=== PATIENT | female | born 1980 | race American Indian/Alaskan Native ===

== ENCOUNTER 2019-06-29 15:52 | Emergency (ER) | payer SELFPAY ==
--- NOTE | 2019-06-29 16:00 | Event Note ---
ED Screening Note Date of service: 06/29/19 Time: 15:58 ED Screening Note: This is a 38 y.o. F. that presents to the ER with low back pain radiating to RLE for 1 week. Denies injury PMH HTN This initial assessment/diagnostic orders/clinical plan/treatment(s) is/are subject to change based on patients health status, clinical progression and re- assessment by fellow clinical providers in the ED. Further treatment and workup at subsequent clinical providers discretion. Patient/guardian urged not to elope from the ED as their condition may be serious if not clinically assessed and managed. Initial orders include: XR L-spine
--- NOTE | 2019-06-29 17:31 | XRay Report ---
LUMBAR SPINE 2 VIEWS INDICATION: Low back pain for one week. No recent known injury. COMPARISON: No relevant prior imaging study available. FINDINGS: VERTEBRAE: No acute fracture. Normal alignment. DISC SPACES: No significant abnormality. FACET JOINTS: No significant abnormality. SOFT TISSUES: No significant abnormality. ADDITIONAL FINDINGS: No additional significant findings. IMPRESSION: No acute abnormality of the lumbar spine. Signer Name: Ryan Clarke MD Signed: 06/29/2019 5:26 PM Workstation Name: [id number]
[2019-06-29] MEDS ORDERED: DECADRON IM ONE (18:42)
[2019-06-29] MEDS ORDERED: TORADOL IM ONE (18:42)
--- NOTE | 2019-06-29 18:44 | Emergency Department Report ---
ED Back Pain/Injury HPI - General Chief Complaint: Back Pain/Injury Stated Complaint: RT LEG/LOWER BACK PAIN Time Seen by Provider: 06/29/19 15:58 Source: patient Limitations: No Limitations - History of Present Illness Initial Comments: This is a 38-year-old female that presents to the ER with low back pain radiating to RLE for 1 week. PMH HTN Patient reports pain is worse with movement. Denies injury MD Complaint: back pain Onset/Timin -: week(s) Similar Symptoms Previously: No Place: home Radiation: right leg Severity: severe Severity scale (0 -10): 10 Quality: burning, aching Consistency: constant Improves With: none Worsens With: movement Context: unknown Associated Symptoms: denies: weakness, numbness, difficulty urinating, incontinence, fever/chills Treatments Prior to Arrival: NSAIDS - Related Data Previous Rx's Medication Instructions Recorded Last Taken Type Ibuprofen [Motrin 600 MG tab] 600 mg PO Q8H PRN #20 tablet 06/29/19 Unknown Rx amLODIPine [Norvasc] 5 mg PO DAILY #30 tab 06/29/19 Unknown Rx hydroCHLOROthiazide [Hctz] 12.5 mg PO QDAY #30 capsule 06/29/19 Unknown Rx methylPREDNISolone [Medrol 4MG 4 mg PO DAILY #1 tab.ds.pk 06/29/19 Unknown Rx DOSEPAK (21 tabs)] traMADol [Ultram 50 MG tab] 50 mg PO Q6HR PRN #12 tablet 06/29/19 Unknown Rx Allergies Allergy/AdvReac Type Severity Reaction Status Date / Time No Known Allergies Allergy Unverified 06/29/19 15:55 ED Review of Systems ROS: Stated complaint: RT LEG/LOWER BACK PAIN Other details as noted in HPI Constitutional: denies: chills, fever Respiratory: denies: cough, shortness of breath, wheezing Cardiovascular: denies: chest pain, palpitations Gastrointestinal: denies: abdominal pain, nausea, diarrhea Musculoskeletal: back pain. denies: joint swelling, arthralgia Skin: denies: rash, lesions Neurological: as per HPI Psychiatric: denies: anxiety, depression ED Back Pain Physical Exam - Exam General: Vital signs noted. No distress. Alert and acting appropriately. Back/Abdomen: Yes Sacroiliac Tenderness (bilateral), Yes Straight Leg Raise Pain (right leg), No Abdominal Tenderness, No Perithoracic Tenderness, No Perilumbar Tenderness, No Flank Tenderness Neuro: Yes Normal Sensation, Yes Normal DTR's, Yes Normal Gait, No Motor Weakness ED Course Vital Signs 06/29/19 15:58 Temperature 98.2 F Pulse Rate 102 H Respiratory 18 Rate Blood Pressure 143/103 [Left] O2 Sat by Pulse 99 Oximetry Vital Signs 06/29/19 06/29/19 15:58 18:49 Temperature 98.2 F Pulse Rate 102 H Respiratory 18 Rate Blood Pressure 143/103 151/98 [Left] O2 Sat by Pulse 99 Oximetry Ed Back Pain Tests - Tests Tests: Normal X Rays ED Medical Decision Making - Radiology Data Radiology results: report reviewed LUMBAR SPINE 2 VIEWS INDICATION: Low back pain for one week. No recent known injury. COMPARISON: No relevant prior imaging study available. FINDINGS: VERTEBRAE: No acute fracture. Normal alignment. DISC SPACES: No significant abnormality. FACET JOINTS: No significant abnormality. SOFT TISSUES: No significant abnormality. ADDITIONAL FINDINGS: No additional significant findings. IMPRESSION: No acute abnormality of the lumbar spine. - Medical Decision Making This patient was examined by this provider. No acute signs of distress noted. No acute distress. XR of L-spine obtained with no acute abnormality of the lumbar spine. Denies change in urination/bowls. Given toradol and dexamethasone IM while in the ER. There is lumbar sacral tenderness bilaterally and positive SLT on right. Findings are susceptible of radiculopathy with sciatica. History of HTN with no management. Patient is asymptomatic, while start medication and referral for continued care. Start medrol pack, ibuprofen, tramadol, amlodipine, and HCTZ. Referrals given for follow up to PCP and orthopedic. At time of discharge, the patient does not seem toxic or ill in appearance. Patient agrees to discharge treatment plan of care. No further questions noted by the patient. Critical care attestation.: If time is entered above; I have spent that time in minutes in the direct care of this critically ill patient, excluding procedure time. ED Disposition Clinical Impression: Lumbar radicular pain, Asymptomatic hypertension Low back pain with sciatica Qualifiers: Chronicity: acute Back pain laterality: right Sciatica laterality: sciatica of right side Qualified Code(s): M54.41 - Lumbago with sciatica, right side Disposition: TO HOME OR SELFCARE Is pt being admited?: No Does the pt Need Aspirin: No Condition: Stable Instructions: Sciatica (ED), Lumbar Radiculopathy (ED), Hypertension (ED) Additional Instructions: Follow up with a primary care doctor for continued management of blood pressure. I have provided a referral to orthopedic surgeon for follow up of your back pain. If your pain is unresolved in 1 week follow up with them. If you have worsening symptoms such as difficulty urinating or passing bowl. Prescriptions: hydroCHLOROthiazide [Hctz] 12.5 mg PO QDAY #30 capsule methylPREDNISolone [Medrol 4MG DOSEPAK (21 tabs)] 4 mg PO DAILY #1 tab.ds.pk Ibuprofen [Motrin 600 MG tab] 600 mg PO Q8H PRN #20 tablet PRN Reason: Pain amLODIPine [Norvasc] 5 mg PO DAILY #30 tab traMADol [Ultram 50 MG tab] 50 mg PO Q6HR PRN #12 tablet PRN Reason: Pain Referrals: TARYN SAAVEDRA MD [Staff Physician] - 3-5 Days [facility] [Outside] - 3-5 Days [facility] [Outside] - 3-5 Days [facility] [Outside] - 3-5 Days [facility] [Provider Group] - 3-5 Days Forms: Work/School Release Form(ED) Time of Disposition: 19:02
[2019-06-29 18:49] VITALS: BP 151/98
== END 2019-06-29 19:53 | disposition home or self-care (01) ==
LOC: ED 15:52
DX: M54.41 Lumbago with sciatica, right side (principal); I10 Essential (primary) hypertension
CPT/HCPCS: 72100; J1100; J1885; 96372

== ENCOUNTER 2021-09-08 14:02 | Emergency (ER) | payer BC ==
[2021-09-08 14:26] VITALS: BP 127/90
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
== END 2021-09-08 15:17 | disposition home or self-care (01) ==
LOC: ED 14:02
DX: M79.18 Myalgia, other site (principal); V49.9XXA Car occupant (driver) (passenger) injured in unspecified traffic accident, initial encounter; Y93.89 Activity, other specified; Y92.89 Other specified places as the place of occurrence of the external cause; Y99.8 Other external cause status
CPT/HCPCS: 99282